=== PATIENT | male | born 1950 | race Caucasian/White ===

== ENCOUNTER 2021-02-09 18:41 | Emergency (ER) | payer OTHER, MEDICAID, SELFPAY ==
[~2021-02-09] VITALS: Ht 180.3 cm; Wt 86.2 kg
[2021-02-09 19:15] VITALS: BP_SYST 136
[2021-02-09] MEDS ORDERED: HALOPERIDOL LACTATE 5 MG/ML VIAL IM ONE (20:30)
[2021-02-09] MEDS ORDERED: DIPHENHYDRAMINE INJ 50 MG/ML VIAL IM ONE (20:30)
--- NOTE | 2021-02-09 21:44 | NUR ---
Patient to ER bed 5 to gown for evaluation. Side rails up. Report given to Charlotte WHITAKER.
--- NOTE | 2021-02-09 21:55 | NUR ---
Assumed total care of patient. Patient BIB BLS from [facility] for increased agitation and psychosis. Patient is AAo x3, able to ambulate independently. Patient resting calmly in gurney. Patient VSS, breathing even and unlabored, no signs of acute distress noted. Will continue to monitor.
--- NOTE | 2021-02-09 22:10 | NUR ---
# 14 FR In and Out catheter with use of sterile technique. Immediate return of 100 ml clear yellow urine noted. Urine sample collected and sent to lab. Pt tolerated procedure well.
--- NOTE | 2021-02-09 22:15 | NUR ---
Blood drawn by RN and sent to lab.
--- NOTE | 2021-02-09 22:20 | NUR ---
ER Dr. Johnston at bedside examining patient.
--- NOTE | 2021-02-09 22:30 | NUR ---
MRSA and COVID swab performed at bedside and sent to lab
[2021-02-09 22:31] LABS: BILIRUBIN,URINE NEGATIVE (NEGATIVE); BLOOD, URINE NEGATIVE (NEGATIVE); CLARITY/URINE CLEAR (CLEAR); COLOR,URINE YELLOW (YELLOW); GLUCOSE,URINE NEGATIVE (NEGATIVE); KETONES,URINE TRACE (NEGATIVE); LEUKOCYTE ESTERASE ,URINE NEGATIVE (NEGATIVE); NITRITE, URINE NEGATIVE (NEGATIVE); PH,URINE 6.5 (5.0-8.0); PROTEIN URINE NEGATIVE (NEGATIVE); UROBILINOGEN,URINE 0.2 (0.2-1.0)
[2021-02-09 22:37] LABS: BASOPHILS % (AUTO) 0.6 % (0.0-2.0); EOSINOPHILS # (AUTO) 0.1 K/uL (0.0-0.4); EOSINOPHILS % (AUTO) 0.9 % (0.0-4.0); HEMATOCRIT 39.8 % (36-54); HEMOGLOBIN 13.4 g/dL (14.0-18.0); LYMPHOCYTES # (AUTO) 2.9 K/uL (1.0-5.5); LYMPHOCYTES % (AUTO) 35.6 % (20.5-51.5); MEAN CORPUSCULAR HEMOGLOBIN 32 pg (27-31); MEAN CORPUSCULAR HGB CONC 34 % (32-36); MEAN CORPUSCULAR VOLUME 96 fL (79.0-98.0); MONOCYTES # (AUTO) 0.9 K/uL (0.0-1.0); MONOCYTES % (AUTO) 10.9 % (1.7-9.3); NEUTROPHILS # (AUTO) 4.2 K/uL (1.8-7.7); PLATELET COUNT (AUTO) 182 K/uL (130-430); RED BLOOD CELL COUNT(AUTO) 4.15 MIL/uL (4.2-6.2)
[2021-02-09 22:48] LABS: ANION GAP 13 (5-15); CALCIUM 8.6 mg/dL (8.4-11.0); CHLORIDE 106 mmol/L (98-107); CREATININE 1.37 mg/dL (0.55-1.30); GLUCOSE 107 mg/dL (70-99); POTASSIUM 3.8 mmol/L (3.5-5.1); SODIUM SERUM 143 mmol/L (136-145); UREA NITROGEN, BLOOD 32 mg/dL (8-21)
[2021-02-09 22:52] LABS: ALANINE AMINOTRANSFERASE 15 U/L (12-78); ALBUMIN 3.7 g/dL (3.4-4.8); ASPARTATE AMINOTRANSFERASE 8 U/L (10-37); TOTAL BILIRUBIN 0.2 mg/dL (0.0-1.0)
[2021-02-09 22:53] LABS: ACETAMINOPHEN < 1 ug/mL (1-30); ALCOHOL, BLOOD < 3 mg/dL (<10)
[2021-02-09 23:01] LABS: BARBITURATE, URINE NEGATIVE (NEG <=200); BENZODIAZEPINE, URINE POSITIVE (NEG <=150); CANNABINOID, URINE NEGATIVE (NEG <=50); COCAINE, URINE NEGATIVE (NEG <=150); METHAMPHETAMINES SCREEN,URINE NEGATIVE (NEG <=500); OPIATE, URINE NEGATIVE (NEG <=100); PHENCYCLIDINE SCREEN,URINE NEGATIVE (NEG <=25); UR TRICYCLIC ANTIDEPRESSANTS NEGATIVE (NEG <=300); URINE AMPHETAMINE NEGATIVE (NEG <=500); URINE METHADONE NEGATIVE (NEG <=200); URINE OXYCODONE SCREEN NEGATIVE (NEG <=100); URINE PROPOXYPHENE SCREEN NEGATIVE (NEG <=300)
[2021-02-09 23:09] LABS: CHOLESTEROL 260 mg/dL (<200); HDL CHOLESTEROL 62 mg/dL (>45); LDL CHOLESTEROL 175 mg/dL (<100); TRIGLYCERIDES 118 mg/dL (30-150)
--- NOTE | 2021-02-09 23:28 | NUR ---
Report given to SHERMAN Norris for continuation of care at [facility].
--- NOTE | 2021-02-10 00:27 | NUR ---
Patient resting quietly. No acute distress noted. Vital signs within normal range. Will continue to monitor.
--- NOTE | 2021-02-10 01:57 | NUR ---
Patient to be transferred to [facility] room 107. Is being transferred due to higher level of care. Receiving facility has accepting physician and available space. ER physician has signed transfer form. Patient or responsible constitution party has agreed to transfer and signed form. Patient belongings inventoried and will be sent with patient. Copy of nursing notes, lab reports, EKG, Physicians Orders and X-rays to be sent with patient. Report called to SHERMAN Norris at receiving facility. Receiving physician is . ambulance service has been called for transfer. ETA is 0300.
--- NOTE | 2021-02-10 02:23 | NUR ---
Patient ambulated to restroom with steady gait. Patient returned to [facility], placed on monitor. Breathing even and unlabored, no signs of acute distress noted. Will continue to monitor.
--- NOTE | 2021-02-10 03:36 | NUR ---
Received an update from Ambulance transport from [facility], updated ETA is 0700.
--- NOTE | 2021-02-10 04:17 | NUR ---
Patient resting quietly. No acute distress noted. Vital signs within normal range. Will continue to monitor.
--- NOTE | 2021-02-10 05:26 | NUR ---
Patient resting quietly. No acute distress noted. Breathing even and unlabored. Will continue to monitor.
--- NOTE | 2021-02-10 06:18 | NUR ---
Received phone call from RN at [facility] to give an update on patient. Patient is resting quietly in [facility], calm and cooperative with staff, is redirectable. [facility]
--- NOTE | 2021-02-10 07:04 | NUR ---
Report given to SHERMAN Guillen for continuation of care.
--- NOTE | 2021-02-10 07:07 | NUR ---
REPORT RECEIVED FROM SHERMAN ISAAC FOR CONTINUING CARE
--- NOTE | 2021-02-10 07:27 | NUR ---
PT AMBULATES TO BATHROOM WITH STEADY GAIT
[2021-02-10 08:25] VITALS: BP_SYST 132
--- NOTE | 2021-02-10 08:27 | NUR ---
[facility] HERE TO TRANSPORT PT. PLACED ON VIJAY ROSADO. V/S STABLE
== END 2021-02-10 08:27 | disposition home or self-care (01) ==
LOC: SED 18:41
DX: F29 Unspecified psychosis not due to a substance or known physiological condition (principal); R45.6 Violent behavior; Z20.822 Contact with and (suspected) exposure to COVID-19; Z79.899 Other long term (current) drug therapy
CPT/HCPCS: 36415; 80053; 80061; 80307; 81003; 83036; 85025; 87081; 87426; 96372; 99285; G0480; J1200; J1630; G0481; G0482

== ENCOUNTER 2021-03-16 01:24 | Emergency (ER) | payer OTHER, MEDICAID, SELFPAY ==
[~2021-03-16] VITALS: Ht 180.3 cm; Wt 86.2 kg
[2021-03-16 01:24] VITALS: BP_SYST 142
--- NOTE | 2021-03-16 01:24 | NUR ---
Patient to [facility] for evaluation. Side rails up.
--- NOTE | 2021-03-16 02:00 | NUR ---
Assumed total care of patient. Patient AAO x1 BIB BLS from [facility] for medical clearnce prior to transfer to [facility] room 112B. Patient aggressive and combative towards staff. Patient arrived calm and cooperative. Patient breathing even and unlabored, no signs of acute distress noted. Will continue to monitor.
--- NOTE | 2021-03-16 02:10 | NUR ---
ER Dr. Moya at bedside examining patient.
[2021-03-16 03:07] LABS: BASOPHILS % (AUTO) 0.3 % (0.0-2.0); EOSINOPHILS # (AUTO) 0.1 K/uL (0.0-0.4); HEMOGLOBIN 12.7 g/dL (14.0-18.0); LYMPHOCYTES # (AUTO) 2.2 K/uL (1.0-5.5); LYMPHOCYTES % (AUTO) 29.8 % (20.5-51.5); MEAN CORPUSCULAR HEMOGLOBIN 32 pg (27-31); MEAN CORPUSCULAR HGB CONC 34 % (32-36); MEAN CORPUSCULAR VOLUME 92 fL (79.0-98.0); MONOCYTES # (AUTO) 1.1 K/uL (0.0-1.0); MONOCYTES % (AUTO) 14.7 % (1.7-9.3); NEUTROPHILS % (AUTO) 54.2 % (40.0-70.0); PLATELET COUNT (AUTO) 188 K/uL (130-430); RED BLOOD CELL COUNT(AUTO) 4.03 MIL/uL (4.2-6.2); RED CELL DISTRIBUTION WIDTH 12.6 % (9.0-15.0); WHITE BLOOD COUNT (AUTO) 7.4 K/uL (4.8-10.8)
[2021-03-16 03:12] LABS: ANION GAP 8 (5-15); CALCIUM 8.7 mg/dL (8.4-11.0); CHLORIDE 105 mmol/L (98-107); CREATININE 1.11 mg/dL (0.55-1.30); GLUCOSE 109 mg/dL (70-99); POTASSIUM 4.2 mmol/L (3.5-5.1); SODIUM SERUM 139 mmol/L (136-145); UREA NITROGEN, BLOOD 22 mg/dL (8-21)
[2021-03-16 03:17] LABS: ALANINE AMINOTRANSFERASE 15 U/L (12-78); ALBUMIN 3.5 g/dL (3.4-4.8); ASPARTATE AMINOTRANSFERASE 11 U/L (10-37); TOTAL BILIRUBIN 0.3 mg/dL (0.0-1.0)
[2021-03-16 03:21] LABS: ACETAMINOPHEN < 1 ug/mL (1-30); ALCOHOL, BLOOD < 3 mg/dL (<10)
[2021-03-16 03:34] LABS: CHOLESTEROL 222 mg/dL (<200); HDL CHOLESTEROL 58 mg/dL (>45); LDL CHOLESTEROL 145 mg/dL (<100); TRIGLYCERIDES 102 mg/dL (30-150)
--- NOTE | 2021-03-16 03:56 | NUR ---
Report given to SHERMAN Serna at [facility] prior to patient being transferred to facility room 112B.
[2021-03-16 04:10] VITALS: BP_SYST 136
--- NOTE | 2021-03-16 04:10 | NUR ---
Patient and [facility] Crew given written and verbal discharge instructions and verbalizes understanding. ER MD discussed with patient the results and treatment provided. Patient in stable condition. ID arm band removed. No Rx given. Patient educated on pain management and to follow up with PMD. Pain Scale 0/10. Opportunity for questions provided and answered. Medication side effect fact sheet provided.
== END 2021-03-16 04:10 ==
LOC: SED 01:24
DX: F29 Unspecified psychosis not due to a substance or known physiological condition (principal); D64.9 Anemia, unspecified; I10 Essential (primary) hypertension; F41.9 Anxiety disorder, unspecified; F20.9 Schizophrenia, unspecified; Z20.822 Contact with and (suspected) exposure to COVID-19; Z79.899 Other long term (current) drug therapy
CPT/HCPCS: 36415; 80053; 80061; 83036; 85025; 87081; 87426; 99285; G0480; G0481; G0482